=== PATIENT | female | born 1970 | race American Indian/Alaskan Native ===

== ENCOUNTER 2019-12-19 14:24 | Emergency (ER) | payer OTHER ==
[2019-12-19 16:37] VITALS: BP 179/89
[2019-12-19 17:08] LABS: Bacteria,Urine 1+ /HPF (Negative); Bilirubin,Urine NEG (Negative); Blood,Urine NEG (Negative); Color,Urine Yellow (Yellow); Mucus,Urine FEW /HPF; Protein,Urine <15 mg/dL mg/dL (Negative)
[2019-12-19 17:18] LABS: Hematocrit 42.9 % (30.3-42.9); Hemoglobin 14.2 gm/dl (10.1-14.3); Mean Corpuscular HGB Conc 33 % (30-34); Mean Corpuscular Volume 95 fl (79-97); Platelet Count 231 K/mm3 (140-440); Red Blood Count 4.52 M/mm3 (3.65-5.03); Red Cell Distribution Width 13.7 % (13.2-15.2)
[2019-12-19 17:39] LABS: BUN/Creatinine Ratio 10; Blood Urea Nitrogen 8 mg/dL (7-17); Calcium 10.7 mg/dL (8.4-10.2); Hemolysis Index 5
[2019-12-19] MEDS ORDERED: diphenhydrAMINE 25 MG CAP PO ONE (20:48)
[2019-12-19] MEDS ORDERED: ONDANSETRON 4 MG ODT TAB PO ONE (20:48)
--- NOTE | 2019-12-19 21:18 | Emergency Department Report ---
ED General Adult HPI - General Chief complaint: Dizziness Stated complaint: DIARREHA, DIZZY, CHILLS Time Seen by Provider: 12/19/19 19:32 Source: patient Mode of arrival: Ambulatory Limitations: No Limitations - History of Present Illness Initial comments: Ms. Poon is a 49-year-old -[place] female who presents for intermittent nausea with some dizziness and diarrhea x2 episodes. She is status post lap band surgery 7 weeks ago. There is no fever or chills , no vomiting. Patient is requesting electrolytes checked. She denies chest pain, no no lightheadedness, no diaphoresis, pt is a/o x 3 ambulatory with steady gait. Onset/Timin -: days(s) Location: abdomen Radiation: non-radiation Severity scale (0 -10): 1 Quality: other (nausea without vomiting ) Consistency: intermittent Improves with: none Worsens with: eating Associated Symptoms: nausea/vomiting (nausea no vomiting) Treatments Prior to Arrival: none - Related Data Previous Rx's Medication Instructions Recorded Last Taken Type Ondansetron [Zofran Odt] 4 mg PO Q8HR #12 tab.rapdis 12/19/19 Unknown Rx Allergies Allergy/AdvReac Type Severity Reaction Status Date / Time No Known Allergies Allergy Unverified 12/19/19 14:49 ED Review of Systems ROS: Stated complaint: DIARREHA, DIZZY, CHILLS Other details as noted in HPI Constitutional: denies: chills, fever Eyes: denies: eye pain, eye discharge, vision change ENT: denies: ear pain, throat pain Respiratory: denies: cough, shortness of breath, wheezing Cardiovascular: denies: chest pain, palpitations Endocrine: no symptoms reported Gastrointestinal: nausea, diarrhea. denies: abdominal pain, vomiting, constipation, hematemesis, hematochezia Genitourinary: denies: urgency, dysuria, frequency, hematuria, discharge Musculoskeletal: denies: back pain, joint swelling, arthralgia Skin: denies: rash, lesions Neurological: denies: headache, weakness, numbness, paresthesias, confusion, abnormal gait, vertigo Psychiatric: denies: anxiety, depression Hematological/Lymphatic: denies: easy bleeding, easy bruising ED Past Medical Hx - Past Medical History Previous Medical History?: Yes Hx Hypertension: Yes - Surgical History Past Surgical History?: Yes Additional Surgical History: gastric bypass - Social History Smoking Status: Never Smoker Substance Use Type: None - Medications Home Medications: Home Medications Medication Instructions Recorded Confirmed Last Taken Type Ondansetron [Zofran Odt] 4 mg PO Q8HR #12 tab.rapdis 12/19/19 Unknown Rx ED Physical Exam - General Limitations: No Limitations General appearance: alert, in no apparent distress - Head Head exam: Present: atraumatic, normocephalic - Eye Eye exam: Present: normal appearance, PERRL, EOMI Pupils: Present: normal accommodation - ENT ENT exam: Present: normal orophraynx, mucous membranes moist, TM's normal bilaterally, normal external ear exam - Neck Neck exam: Present: normal inspection, full ROM. Absent: tenderness - Respiratory Respiratory exam: Present: normal lung sounds bilaterally. Absent: respiratory distress, wheezes, stridor, chest wall tenderness - Cardiovascular Cardiovascular Exam: Present: regular rate, normal rhythm, normal heart sounds. Absent: systolic murmur, diastolic murmur, rubs, gallop - GI/Abdominal GI/Abdominal exam: Present: soft, normal bowel sounds. Absent: distended, tenderness, guarding, rebound, rigid, bruit, hernia - Rectal Rectal exam: Present: deferred - Extremities Exam Extremities exam: Present: normal inspection. Absent: tenderness - Back Exam Back exam: Present: normal inspection, full ROM. Absent: tenderness, CVA tenderness (R), CVA tenderness (L) - Neurological Exam Neurological exam: Present: alert, oriented X3, CN II-XII intact, normal gait, reflexes normal. Absent: motor sensory deficit - Expanded Neurological Exam Expanded Patient oriented to: Present: person, place, time Speech: Present: fluid speech Motor strength exam: RUE: 5, LUE: 5, RLE: 5, LLE: 5 Best Eye Response ([place]): (4) open spontaneously Best Motor Response ([place]): (6) obeys commands Best Verbal Response ([place]): (5) oriented [place] Total: 15 - Psychiatric Psychiatric exam: Present: normal affect, normal mood - Skin Skin exam: Present: warm, dry, intact, normal color. Absent: rash ED Course Vital Signs 12/19/19 16:32 Temperature 98.4 F Pulse Rate 69 Respiratory 18 Rate Blood Pressure 179/89 O2 Sat by Pulse 98 Oximetry ED Medical Decision Making - Lab Data Result diagrams: 12/19/19 17:00 12/19/19 17:00 Labs 12/19/19 12/19/19 12/19/19 17:00 17:00 Unknown WBC 6.4 RBC 4.52 Hgb 14.2 Hct 42.9 MCV 95 MCH 31 MCHC 33 RDW 13.7 Plt Count 231 Sodium 139 Potassium 4.0 Chloride 104.1 Carbon Dioxide 22 Anion Gap 17 BUN 8 Creatinine 0.8 Estimated GFR > 60 BUN/Creatinine Ratio 10 Glucose 121 H Calcium 10.7 H Urine Color Yellow Urine Turbidity Clear Urine pH 6.0 Ur Specific [place] 1.014 Urine Protein <15 mg/dl Urine Glucose (UA) Neg Urine Ketones Tr Urine Blood Neg Urine Nitrite Neg Urine Bilirubin Neg Urine Urobilinogen 4.0 Ur Leukocyte Esterase Neg Urine WBC (Auto) 2.0 Urine RBC (Auto) 2.0 U Epithel Cells (Auto) < 1.0 Urine Bacteria (Auto) 1+ Urine Mucus Few - Medical Decision Making Patient declines chest x-ray, patient declines EKG states I just wanted my electrolytes checked. She is tolerating p.o. intake without symptoms at this time. Vital signs noted stable. She has no symptoms of vertigo at this time. patient is alert and oriented x3. She demonstrates decision-making capacity. She has had opportunity to ask and I have answered all questions to her satisfaction including risk of leaving AGAINST MEDICAL ADVICE, worsening symptoms, and possible . Patient verbalizes understanding of risk factors. She advises she will follow-up with GI and take her current medications as prescribed. Patient will be given prescription for Zofran ODT as needed nausea. She will follow-up with her primary care doctor and her bypass surgeon in 1 to 2 days. Patient signed out AMA at this time. Critical care attestation.: If time is entered above; I have spent that time in minutes in the direct care of this critically ill patient, excluding procedure time. ED Disposition Clinical Impression: Nausea, Viral syndrome Disposition: DC-07 LEFT AGAINST MED ADVICE Is pt being admited?: No Does the pt Need Aspirin: No Condition: Undetermined Instructions: Dizziness (ED) Additional Instructions: follow up with your Gastric Bypass Surgeon in 1-2 days, return to emergency if symptoms worsen. Prescriptions: Ondansetron [Zofran Odt] 4 mg PO Q8HR #12 tab.rapdis Referrals: PRIMARY CARE, [Primary Care Provider] - 3-5 Days Forms: AMA Form Time of Disposition: 21:21
== END 2019-12-19 21:36 | disposition left against medical advice (07) ==
LOC: ED 14:24
DX: B34.9 Viral infection, unspecified (principal); I10 Essential (primary) hypertension; Z79.899 Other long term (current) drug therapy
CPT/HCPCS: 36415; 80048; 81001; 85027; Q0162